=== PATIENT | female | born 1995 | race Caucasian/White ===

== ENCOUNTER 2019-07-03 16:52 | Emergency (ER) | payer BC, MEDICAID ==
--- NOTE | 2019-07-03 17:12 | Emergency Department Record ---
History of Present Illness - General Chief Complaint: Cough Stated Complaint: COUGH Time Seen by Provider: 07/03/19 17:06 Source: Patient Mode of Arrival: Ambulatory Limitations: No limitations - History of Present Illness Initial Comments: 24 yo female presents with onset of a cough that started yesterday. She has associated headaches, body aches, and some chills. The cough is non productive. She is a smoker. No underlying lung disease history. She denies and ear pain or sore throat. No rash. She had some nausea but that resolved. NO diarrhea. MD Complaint: Cough -: Days(s) (1) Severity: Moderate Quality: Aching Consistency: Constant Worsens With: Other (Coughing) Associated Symptoms: Chills, Cough, Myalgias Treatments Prior to Arrival: Other - Related Data Previous Rx's Medication Instructions Recorded Ondansetron [Zofran Odt] 4 mg PO Q8H #10 tab.rapdis 07/03/19 Oseltamivir Phosphate [Tamiflu] 75 mg PO BID #10 capsule 07/03/19 Allergies Allergy/AdvReac Type Severity Reaction Status Date / Time latex Allergy HIVES Verified 07/03/19 17:13 adhesive tape AdvReac HIVES Verified 07/03/19 17:13 Review of Systems Constitutional: Reports: Chills, Malaise. Denies: Fever Eyes: Denies: Eye discharge, Eye pain, Photophobia, Vision change ENT: Reports: Congestion. Denies: Epistaxis, Throat pain Respiratory: Reports: Cough. Denies: Dyspnea, Hemoptysis, Wheezes Cardiovascular: Reports: Chest pain (with coughing) Endocrine: Reports: Fatigue. Denies: Polydipsia, Polyuria Gastrointestinal: Reports: Nausea. Denies: Abdominal pain, Diarrhea, Vomiting Genitourinary: Denies: Dysuria, Frequency, Urgency Musculoskeletal: Reports: Myalgia (Aches all over). Denies: Arthralgia, Back pain, Neck pain Skin: Denies: Bruising, Change in color, Rash Neurological: Reports: Headache Psychiatric: Denies: Anxiety Hematological/Lymphatic: Denies: Easy bleeding, Easy bruising Physical Exam - General General Appearance: Alert, Oriented x3, Cooperative, No acute distress Limitations: No limitations - Head Head exam: Atraumatic - Eye Eye exam: Normal appearance, PERRL, Conjunctival injection. negative: Scleral icterus - ENT ENT exam: Normal exam, Mucous membranes moist, Normal orophraynx Ear exam: Normal external inspection Nasal Exam: Discharge Mouth exam: Normal external inspection Teeth exam: Normal inspection Throat exam: Normal inspection. negative: Tonsillar erythema, Tonsillomegaly, Tonsillar exudate, R peritonsillar mass, L peritonsillar mass - Neck Neck exam: Full ROM. negative: Lymphadenopathy, Tenderness - Respiratory Respiratory exam: Normal lung sounds bilaterally. negative: Accessory muscle use, Decreased breath sounds, Respiratory distress, Rhonchi, Stridor, Wheezes - Cardiovascular Cardiovascular Exam: Regular rate, Normal rhythm, Normal heart sounds - GI/Abdominal GI/Abdominal exam: Soft. negative: Tenderness - Rectal Rectal exam: Deferred - exam: Deferred - Extremities Extremities exam: Normal capillary refill - Back Back exam: Reports: Full ROM. Denies: CVA tenderness (R), CVA tenderness (L) - Neurological Neurological exam: Alert, Oriented X3 - Psychiatric Psychiatric exam: Normal affect, Normal mood. negative: Agitated, Anxious - Skin Skin exam: Dry, Intact, Normal color, Warm Disposition Disposition: Discharge Clinical Impression: Influenza A Disposition: Home, Self-Care Condition: (1) Good Instructions: Influenza (ED) Additional Instructions: Return to the ER for a recheck if worse, any new concerns or questions Take the prescriptions provided as directed You are very infectious so cover with cough and wash hands frequently Prescriptions: Oseltamivir Phosphate [Tamiflu] 75 mg PO BID #10 capsule Ondansetron [Zofran Odt] 4 mg PO Q8H #10 tab.rapdis Forms: Patient Portal Access Time of Disposition: 17:51 Quality - Quality Measures Quality Measures: N/A - Blood Pressure Screening Does Patient Have Any of the Following: No Blood Pressure Classification: Normal BP Reading Systolic Measurement: 114 Diastolic Measurement: 71 Screening for High Blood Pressure: < Normal BP, F/U Not Required > [G8783]
[2019-07-03 17:47] LABS: INFLUENZA A POSITIVE (NEGATIVE); INFLUENZA B NEGATIVE (NEGATIVE)
== END 2019-07-03 18:14 | disposition home or self-care (01) ==
LOC: ER 16:52
DX: J10.1 Influenza due to other identified influenza virus with other respiratory manifestations (principal); F17.210 Nicotine dependence, cigarettes, uncomplicated
CPT/HCPCS: 87400; 99283